=== PATIENT | male | born 1985 | race Caucasian/White ===

== ENCOUNTER 2024-05-23 08:03 | Day surgery (SDC) | payer OTHER ==
[~2024-05-23] VITALS: Ht 180.3 cm; Wt 87.2 kg
[~2024-05-23 08:03] MED LIST: Lactated Ringer's 1,000 ML IV ONE; propofoL 50 ML IV ONE
[2024-05-23] MEDS ORDERED: Norco 5-325 Ta1 EACH (08:47)
[2024-05-23] MEDS ORDERED: ACET500 (08:47)
[2024-05-23] MEDS ORDERED: Lactated Ringer's 1,000 ML IV ONE (09:25)
--- NOTE | 2024-05-23 09:27 | NUR ---
05/23/24 0927 Eugenia Parikh PT. VERBALIZES HAVING LEFT HAND PAIN. PT. RATING A "4", PT. TOOK HIS PAIN MED AT 4AM TODAY. PT. RECENTLY HAD CARPAL TUNNEL SURGERY. OFFERED PT. A PILLOW FOR ELEVATION, PT. STATED "HE WAS FINE."
[2024-05-23] MEDS ORDERED: propofoL 50 ML IV ONE (10:24)
== END 2024-05-23 10:55 | disposition home or self-care (01) ==
LOC: ORSCSDS 08:03
DX: K50.90 Crohn's disease, unspecified, without complications (principal); K52.9 Noninfective gastroenteritis and colitis, unspecified; R74.01 Elevation of levels of liver transaminase levels; Z79.899 Other long term (current) drug therapy
CPT/HCPCS: 88305; J2704; J7120